=== PATIENT | female | born 1990 | race Asian ===

== ENCOUNTER 2016-12-15 19:55 | Emergency (ER) | payer OTHER ==
[2016-12-15] MEDS ORDERED: NS 1,000 ML IV ONE (20:19)
--- NOTE | 2016-12-15 20:23 | CPEKG ---
Heart Rate: 114 RR Interval: 526 P-R Interval: 152 QRSD Interval: 76 QT Interval: 336 QTC Interval: 463 P [place]: 62 QRS [place]: 105 T Wave [place]: 43 EKG Severity - OTHERWISE NORMAL ECG - EKG Impression: SINUS TACHYCARDIA EKG Impression: BORDERLINE RIGHT AXIS DEVIATION Electronically Signed By: Alexandru Salguero 16-Dec-2016 10:51:42
--- NOTE | 2016-12-15 20:24 | EDPHY ---
H & P Time Seen by Provider: 12/15/16 20:19 HPI/ROS: HPI:26-year-old female presents to emergency department with chief concern dry mouth, heart racing, shivers. Symptoms onset Suddenlyat 7:00 p.m. tonight. She smoked marijuana at 6:30 p.m. tonight. Denies fever, dizziness, visual changes, shortness of breath, chest pain, abdominal pain, nausea or vomiting. Uses marijuana once every 3 months. No other illicit drug use. Denies alcohol. no recent change in medications. ROS:10 point review of systems is negative other than as stated in HPI Past Medical/Surgical History: Bipolar disorder for which she takes lithium since age 15 Smoking Status: Never smoked Physical Exam: Vital signs reviewed by me General: Awake, alert, calm, cooperative. No acute distress. Head: Normalocephalic. Atraumatic. EENT: PERRLA. EOMI. No pallor or injection. Anicteric. No nystagmus. No injection. Neck: Supple, nontender. No lymphadenopathy. Full range of motion. No meningismus. Respiratory: Breathing unlabored. Breath sounds equal bilaterally and clear to auscultation. No adventitious sounds. CV: Chest nontender, atraumatic. Heart rate regular and tachycardic. No murmur , distal pulses 2+ bilaterally. Brisk cap refill all extremities. GI: Abdomen soft, nontender. Bowel sounds normoactive and positive x4 quadrants. Neuro: Alert. Oriented x 3. Speech clear. Nonfocal cranial nerves throughout. Sensation intact all extremities. Skin: Skin warm, dry, intact. No rashes, abrasions, or lacerations. Skin turgor normal. Extremities: Full range of motion in all 4 extremities. Strength 5+ all extremities. Constitutional: Initial Vital Signs Temperature (C) 36.3 C 12/15/16 19:57 Heart Rate 137 H 12/15/16 19:57 Respiratory Rate 14 12/15/16 19:57 Blood Pressure 123/93 H 12/15/16 19:57 O2 Sat (%) 100 12/15/16 19:57 O2 Delivery Mode Room Air Allergies/Adverse Reactions: No Known Allergies Allergy (Unverified 12/15/16 19:57) Home Medications: Medication Instructions Recorded Ewa Gentry Carbonate 12/15/16 Medical Decision Making ED Course/Re-evaluation: 2024: 26-year-old female presents to emergency department with chief concern heart racing and shivers that onset 30 minutes after she smoked marijuana. She denies other illicit drug use. No personal or family history of dysrhythmia. Only home medication is lithium carbonate that she has taken chin to was 15 without recent changes in the dose of the medication. EKG shows a sinus tach rate 114, normal intervals, no axis deviation, no evidence of ischemia. IV started. Blood drawn. Given 1 L normal saline. 2054: CBC unremarkable. Basic metabolic panel shows a K of 3.3, CO2 21, glucose 176. Vitals are stable. Heart rate down to 99. I will have her replace potassium orally and have counseled her regarding this. I have referred her to primary care for follow-up this week. Have counseled her regarding marijuana use. Differential Diagnosis: differential includes but is not limited to marijuana side effect, cardiac dysrhythmia, metabolic derangement, dehydration, infection - Data Points Laboratory Results: Laboratory Results 12/15/16 20:30 12/15/16 20:30 12/15/16 20:30 WBC 8.54 10^3/uL (3.80-9.50) RBC 4.84 10^6/uL (4.18-5.33) Hgb 14.8 g/dL (12.6-16.3) Hct 44.7 % (38.0-47.0) MCV 92.4 fL (81.5-99.8) MCH 30.6 pg (27.9-34.1) MCHC 33.1 g/dL (32.4-36.7) RDW 12.8 % (11.5-15.2) Plt Count 308 10^3/uL (150-400) MPV 9.0 fL (8.7-11.7) Neut % (Auto) 73.4 % (39.3-74.2) Lymph % (Auto) 18.0 % (15.0-45.0) [place] % (Auto) 7.4 % (4.5-13.0) Eos % (Auto) 0.4 L % (0.6-7.6) Baso % (Auto) 0.4 % (0.3-1.7) Nucleat RBC Rel Count 0.0 % (0.0-0.2) Absolute Neuts (auto) 6.28 10^3/uL (1.70-6.50) Absolute Lymphs (auto) 1.54 10^3/uL (1.00-3.00) Absolute Monos (auto) 0.63 10^3/uL (0.30-0.80) Absolute Eos (auto) 0.03 10^3/uL (0.03-0.40) Absolute Basos (auto) 0.03 10^3/uL (0.02-0.10) Absolute Nucleated RBC 0.00 10^3/uL (0-0.01) Immature Gran % 0.4 % (0.0-1.1) Immature Gran # 0.03 10^3/uL (0.00-0.10) Sodium 140 mEq/L (134-144) Potassium 3.3 L mEq/L (3.5-5.2) Chloride 103 mEq/L (97-110) Carbon Dioxide 21 L mEq/l (22-31) Anion Gap 16 mEq/L (8-16) BUN 14 mg/dL (7-23) Creatinine 0.7 mg/dL (0.6-1.0) Estimated GFR > 60 Glucose 176 H mg/dL (70-100) Calcium 9.6 mg/dL (8.5-10.4) Magnesium 1.7 mg/dL (1.6-2.3) Medications Given: Discontinued Medications Sodium Chloride (Ns) 1,000 mls @ 0 mls/hr IV ONCE ONE PRN Reason: Wide Open Stop: 12/15/16 20:20 Last Admin: 12/15/16 20:35 Dose: 1,000 mls Departure - Departure Disposition: Home, Routine, Self-Care Clinical Impression: Marijuana intoxication Condition: Good Instructions: Tachycardia (ED) Additional Instructions: Plan: As discussed, follow up with primary care this week for recheck without fail-- When you call to schedule appointment, please let the office know you are an " ER follow up" appointment" replace potassium orally as discussed. Please have your potassium level rechecked with primary care. Drink plenty of fluids do not smoke marijuana Referrals: NONE *PRIMARY CARE P,. [Primary Care Provider] - As per Instructions Judith Lozada, [employer] [Certified Nurse Practioner] - As per Instructions
[2016-12-15 20:43] LABS: % IMMATURE GRANULYOCYTES 0.4 % (0.0-1.1); ABSOLUTE IMMATURE GRANULOCYTES 0.03 10^3/uL (0.00-0.10); ADD DIFF? NO; ADD MORPH? NO; ADD SCAN? NO; ATYPICAL LYMPHOCYTE FLAG 10 (0-99); FRAGMENT RBC FLAG 0 (0-99); HEMATOCRIT 44.7 % (38.0-47.0); HEMOGLOBIN 14.8 g/dL (12.6-16.3); LEFT SHIFT FLG 0 (0-99); LIPEMIA HEMOLYSIS FLAG 80 (0-99); MEAN CELL HEMOGLOBIN 30.6 pg (27.9-34.1); MEAN CELL HEMOGLOBIN CONCENTR. 33.1 g/dL (32.4-36.7); MEAN CELL VOLUME 92.4 fL (81.5-99.8); PLATELET CLUMPS FLAG 0 (0-99); PLATELET COUNT 308 10^3/uL (150-400); RED BLOOD CELL COUNT 4.84 10^6/uL (4.18-5.33); RED CELL DISTRIBUTION WIDTH 12.8 % (11.5-15.2)
[2016-12-15 20:53] LABS: ANION GAP 16 mEq/L (8-16); CALCIUM 9.6 mg/dL (8.5-10.4); CARBON DIOXIDE 21 mEq/l (22-31); CHLORIDE 103 mEq/L (97-110); CREATININE 0.7 mg/dL (0.6-1.0); GLOMERULAR FILTRATION RATE > 60; GLUCOSE 176 mg/dL (70-100); MAGNESIUM 1.7 mg/dL (1.6-2.3); POTASSIUM 3.3 mEq/L (3.5-5.2); SODIUM 140 mEq/L (134-144)
[2016-12-15 21:16] VITALS: BP 100/79; PULSE 99; RESP 16; TEMP 97.9; O2SAT 97
== END 2016-12-15 21:43 | disposition home or self-care (01) ==
DX: F12.129 Cannabis abuse with intoxication, unspecified (principal)